=== PATIENT | male | born 1940 | race Caucasian/White ===

== ENCOUNTER 2018-08-23 15:52 | Emergency (ER) | payer MEDICARE, OTHER ==
[2018-08-23 16:16] VITALS: BP 140/68
--- NOTE | 2018-08-23 17:09 | EDM.PDOC ---
ED HPI GENERAL MEDICAL PROBLEM - General Chief Complaint: Genitourinary Problem Stated Complaint: infection Time Seen by Provider: 08/23/18 16:50 Source of Information: Reports: Patient, Family History Limitations: Reports: No Limitations - History of Present Illness INITIAL COMMENTS - FREE TEXT/NARRATIVE: 78-year-old male had a prostate biopsy 2 days ago, had one dose of Levaquin prior to the procedure. Apparently the procedure went well but last night he had chills and fever, and today doesn't feel well so he called the urologist and he told him to come into the emergency room to get antibiotics. Currently he is afebrile, feels better but still just kind of weak and mildly ill. No shortness of breath or cough, no dysuria. Denies back pain. Associated Symptoms: Reports: Fever/Chills, Malaise, Weakness. Denies: Chest Pain, Nausea/Vomiting, Shortness of Breath - Related Data Allergies Allergy/AdvReac Type Severity Reaction Status Date / Time sulfur dioxide Allergy Other Verified 08/23/18 16:10 tamsulosin HCl [From Flomax] Allergy Chills Verified 08/23/18 16:10 Home Meds: Home Meds Ascorbic Acid [Vitamin C] 1,000 mg PO DAILY 12/14/17 [History] Aspirin [Adult Low Dose Aspirin EC] 81 mg PO DAILY 12/14/17 [History] Cholecalciferol (Vitamin D3) [Vitamin D3] 1,000 units PO DAILY 12/14/17 [History ] Dabigatran [Pradaxa] 150 mg PO BID 12/14/17 [History] Diltiazem [Cardizem] 120 mg PO BID 12/14/17 [History] Fish Oil/[place]-3 Fatty Acids [Fish Oil 1,000 MG] 1,000 mg PO DAILY 12/14/17 [ History] Glucosamine HCl [Glucosamine] 1,500 mg PO DAILY 12/14/17 [History] Lisinopril [Zestril] 10 mg PO DAILY 12/14/17 [History] Multivitamin with Minerals [Multiple Vitamin] 1 tab PO DAILY 12/14/17 [History] Propafenone HCl [Rythmol Sr] 300 mg PO BID 12/14/17 [History] Terazosin [Hytrin] 10 mg PO BEDTIME 12/14/17 [History] Ubidecarenone [Coq-10] 100 mg PO DAILY 12/14/17 [History] Vitamin B Complex 1 each PO DAILY 12/14/17 [History] atorvaSTATin [Lipitor] 40 mg PO DAILY 12/14/17 [History] Past Medical History HEENT History: Reports: Hard of Hearing, Impaired Vision Cardiovascular History: Reports: Afib, High Cholesterol, Hypertension Genitourinary History: Reports: Pyelonephritis, Renal Calculus, UTI, Recurrent Musculoskeletal History: Reports: Back Pain, Chronic - Infectious Disease History Infectious Disease History: Reports: Chicken Pox, Measles - Past Surgical History HEENT Surgical History: Reports: None, Other (See Below) Other HEENT Surgeries/Procedures: EYE BROW LIFT Cardiovascular Surgical History: Reports: None GI Surgical History: Reports: Colonoscopy Male Surgical History: Reports: Prostate Biopsy, Other (See Below) Other Male Surgeries/Procedures: URERTER REATTACHMENT Musculoskeletal Surgical History: Reports: Other (See Below) Other Musculoskeletal Surgeries/Procedures:: EPIDERAL INJECTIONS Social & Family History - Family History Family Medical History: Noncontributory - Tobacco Use Smoking Status *Q: Never Smoker Second Hand Smoke Exposure: Yes - Caffeine Use Caffeine Use: Reports: Soda - Recreational Drug Use Recreational Drug Use: No ED ROS GENERAL - Review of Systems Review Of Systems: See Below Constitutional: Reports: Fever, Chills, Malaise HEENT: Reports: No Symptoms Respiratory: Denies: Shortness of Breath Cardiovascular: Denies: Chest Pain GI/Abdominal: Denies: Abdominal Pain, Vomiting : Denies: Dysuria, Flank Pain, Frequency Musculoskeletal: Reports: No Symptoms ED EXAM, RENAL/ - Physical Exam Exam: See Below Exam Limited By: No Limitations General Appearance: Alert, No Apparent Distress Head: Atraumatic Respiratory/Chest: No Respiratory Distress, Lungs Clear Cardiovascular: Regular Rate, Rhythm Back Exam: No: CVA Tenderness (R), CVA Tenderness (L) Neurological: Alert, Oriented Psychiatric: Normal Affect, Normal Mood Skin Exam: Warm, Dry Course - Vital Signs Last Recorded V/S: Last Vital Signs Temp 98.1 F 08/23/18 16:23 Pulse 70 08/23/18 16:23 Resp 16 08/23/18 16:23 BP 140/68 08/23/18 16:23 Pulse Ox 93 L 08/23/18 16:23 - Re-Assessments/Exams Free Text/Narrative Re-Assessment/Exam: 08/23/18 17:08 Patient currently has no fever, flank pain or significant symptoms and his vitals are normal. He'll be placed on Levaquin 500 mg once daily for 5 days, and can return anytime if worsening despite treatment. Departure - Departure Time of Disposition: 17:22 Disposition: Home, Self-Care 01 Condition: Good Clinical Impression: Fever chills - Discharge Information Instructions: Urinary Tract Infection, Adult, [id number] Referrals: PCP,None [Primary Care Provider] - Forms: ED Department Discharge Care Plan Goals: Take 500 mg or one dose of Levaquin daily for the next 5 days. Return anytime if worsening such as vomiting the medications, persistent fever or increased pain.
== END 2018-08-23 17:23 | disposition home or self-care (01) ==
LOC: JP.ED 15:52
DX: R50.9 Fever, unspecified (principal); I48.91 Unspecified atrial fibrillation; I10 Essential (primary) hypertension; E78.00 Pure hypercholesterolemia, unspecified; Z79.899 Other long term (current) drug therapy; Z77.22 Contact with and (suspected) exposure to environmental tobacco smoke (acute) (chronic); Z88.8 Allergy status to other drugs, medicaments and biological substances
CPT/HCPCS: 99283

== ENCOUNTER 2018-09-01 10:02 | Emergency (ER) | payer MEDICARE, OTHER ==
[2018-09-01 10:18] VITALS: BP 143/61; PULSE 74
[2018-09-01] MEDS ORDERED: Lidocaine 2% Jelly 10 ML Urojet MUCMEM ONE (10:44)
[2018-09-01] MEDS ORDERED: cefTRIAXone 1 GM in Sodium Chloride 0.9% 50 ML IV ONE (10:54)
--- NOTE | 2018-09-01 10:54 | EDM.PDOC ---
ED HPI GENERAL MEDICAL PROBLEM - General Chief Complaint: Genitourinary Problem Stated Complaint: URIN RETENTION Time Seen by Provider: 09/01/18 10:48 Source of Information: Reports: Patient History Limitations: Reports: No Limitations - History of Present Illness INITIAL COMMENTS - FREE TEXT/NARRATIVE: pt has just been passing drops of urine for the past 16 hours. Onset: Today Duration: Hour(s): Associated Symptoms: Reports: No Other Symptoms Bladder Pain Score (Numeric/FACES): 3 - Related Data Allergies Allergy/AdvReac Type Severity Reaction Status Date / Time sulfur dioxide Allergy Other Verified 09/01/18 10:23 tamsulosin HCl [From Flomax] Allergy Chills Verified 09/01/18 10:23 Home Meds: Home Meds Ascorbic Acid [Vitamin C] 1,000 mg PO DAILY 12/14/17 [History] Aspirin [Adult Low Dose Aspirin EC] 81 mg PO DAILY 12/14/17 [History] Cholecalciferol (Vitamin D3) [Vitamin D3] 1,000 units PO DAILY 12/14/17 [History ] Dabigatran [Pradaxa] 150 mg PO BID 12/14/17 [History] Diltiazem [Cardizem] 120 mg PO BID 12/14/17 [History] Fish Oil/[place]-3 Fatty Acids [Fish Oil 1,000 MG] 1,000 mg PO DAILY 12/14/17 [ History] Glucosamine HCl [Glucosamine] 1,500 mg PO DAILY 12/14/17 [History] Lisinopril [Zestril] 10 mg PO DAILY 12/14/17 [History] Multivitamin with Minerals [Multiple Vitamin] 1 tab PO DAILY 12/14/17 [History] Propafenone HCl [Rythmol Sr] 300 mg PO BID 12/14/17 [History] Terazosin [Hytrin] 10 mg PO BEDTIME 12/14/17 [History] Ubidecarenone [Coq-10] 100 mg PO DAILY 12/14/17 [History] Vitamin B Complex 1 each PO DAILY 12/14/17 [History] atorvaSTATin [Lipitor] 40 mg PO DAILY 12/14/17 [History] Sulfamethoxazole/Trimethoprim [Sulfamethoxazole-Tmp Ds Tablet] 1 each PO BID 08/15 [History] Past Medical History HEENT History: Reports: Hard of Hearing, Impaired Vision Cardiovascular History: Reports: Afib, High Cholesterol, Hypertension Genitourinary History: Reports: Pyelonephritis, Renal Calculus, UTI, Recurrent, Other (See Below) Other Genitourinary History: prostate biopsy August 21. Musculoskeletal History: Reports: Back Pain, Chronic - Infectious Disease History Infectious Disease History: Reports: Chicken Pox, Measles - Past Surgical History HEENT Surgical History: Reports: None, Other (See Below) Other HEENT Surgeries/Procedures: EYE BROW LIFT Cardiovascular Surgical History: Reports: None GI Surgical History: Reports: Colonoscopy Male Surgical History: Reports: Prostate Biopsy, Other (See Below) Other Male Surgeries/Procedures: URERTER REATTACHMENT Musculoskeletal Surgical History: Reports: Other (See Below) Other Musculoskeletal Surgeries/Procedures:: EPIDERAL INJECTIONS Social & Family History - Family History Family Medical History: Noncontributory - Tobacco Use Smoking Status *Q: Never Smoker Second Hand Smoke Exposure: No - Caffeine Use Caffeine Use: Reports: Soda - Recreational Drug Use Recreational Drug Use: No ED ROS GENERAL - Review of Systems Review Of Systems: See Below Constitutional: Reports: Chills HEENT: Reports: No Symptoms Respiratory: Reports: No Symptoms Cardiovascular: Reports: No Symptoms Endocrine: Reports: No Symptoms GI/Abdominal: Reports: Mucous in Stool : Reports: No Symptoms Musculoskeletal: Reports: No Symptoms Skin: Reports: No Symptoms ED EXAM, GI/ABD - Physical Exam Exam: See Below Text/Narrative:: pt arrived with ahistory of not being able to void for the past 16 hours. He has been uncomfortable . His bms have been a little irregular. He has not vomited. He was seen at the clinic yesterday and he was paced on bactrim for a possible UTI. His urine was cultured. Exam Limited By: No Limitations General Appearance: Alert, Anxious, Moderate Distress, Other (pt has greater than 999 in his bladder. ) Ears: Normal TMs Nose: Normal Inspection Throat/Mouth: Normal Inspection Head: Atraumatic Neck: Normal Inspection Respiratory/Chest: No Respiratory Distress Cardiovascular: Regular Rate, Rhythm GI/Abdominal Exam: Other ( tender over the distended bladder. ) (Male) Exam: Deferred Rectal (Males) Exam: Deferred Back Exam: Normal Inspection Extremities: Normal Inspection Neurological: Alert, Oriented, Normal Cognition Psychiatric: Normal Affect Course - Vital Signs Last Recorded V/S: Last Vital Signs Temp 36.2 C 09/01/18 10:28 Pulse 74 09/01/18 10:28 Resp 16 09/01/18 10:28 BP 143/61 H 09/01/18 10:28 Pulse Ox 94 L 09/01/18 10:28 - Orders/Labs/Meds Orders: Active Orders 24 hr Category Date Time Status Bladder Scan [RC] ASDIRECTED Care 09/01/18 10:14 Active Avery Catheter Insertion [Insert Urinary Catheter] [OM. Care 09/01/18 10:45 Ordered PC] Q24H Urinary Catheter Assessment [RC] ASDIRECTED Care 09/01/18 10:44 Active CULTURE URINE [RM] Stat Lab 09/01/18 11:32 Received Sodium Chloride 0.9% [Normal Saline] 1,000 ml Med 09/01/18 11:00 Active IV ASDIRECTED Medication Orders Sodium Chloride (Normal Saline) 1,000 mls @ 999 mls/hr IV ASDIRECTED JUDITH Last Admin: 09/01/18 11:28 Dose: 999 mls/hr Labs: Laboratory Tests 09/01/18 Range/Units 10:41 Lactic Acid 2.5 H (0.4-2.0) mmol/L Meds: Medications Generic Name Dose Route Start Last Admin Trade Name Freq PRN Reason Stop Dose Admin Sodium Chloride 1,000 mls @ 999 mls/hr 09/01/18 11:00 09/01/18 11:28 Normal Saline IV 999 mls/hr ASDIRECTED JUDITH Administration Discontinued Medications Generic Name Dose Route Start Last Admin Trade Name Freq PRN Reason Stop Dose Admin Ceftriaxone Sodium 1 gm/ 50 mls @ 100 mls/hr 09/01/18 10:54 09/01/18 11:32 Sodium Chloride IV 09/01/18 11:23 100 mls/hr ONETIME ONE Administration Lidocaine HCl 10 ml 09/01/18 10:44 09/01/18 10:50 Xylocaine 2% Jelly MUCMEM 09/01/18 10:45 10 ml ONETIME ONE Administration - Re-Assessments/Exams Free Text/Narrative Re-Assessment/Exam: 09/01/18 12:12 pt had a 21,000 wbc. He is not running a fever. He is holding fluids down today. He has a lactic acid which is borderline. He has a urine culture that is pending. He had a cat scan of the abdoman which did not show any abcess formation of fluid collection around the prostate, slight swelling was present. The cat scan was otherwise neg. Departure - Departure Time of Disposition: 13:02 Disposition: Home, Self-Care 01 Condition: Fair Clinical Impression: UTI (urinary tract infection), H/O prostate biopsy - Discharge Information Referrals: Elijah Fisher, HOSPICE TEAM [employer]AD [Primary Care Provider] - Forms: ED Department Discharge Care Plan Goals: push fluids, rtc tomorrow for another gm of rocephen. , continue bactrim, rtc if any high temp spikes. avery cath should stay in until monday am, send a leg bag with the pt. - My Orders Last 24 Hours: My Active Orders 09/01/18 10:14 Bladder Scan [RC] ASDIRECTED 09/01/18 10:44 Urinary Catheter Assessment [RC] ASDIRECTED 09/01/18 10:45 Avery Catheter Insertion [Insert Urinary Catheter] [OM.PC] Q24H 09/01/18 11:00 Sodium Chloride 0.9% [Normal Saline] 1,000 ml IV ASDIRECTED 09/01/18 11:32 CULTURE URINE [RM] Stat - Assessment/Plan Last 24 Hours: My Active Orders 09/01/18 10:14 Bladder Scan [RC] ASDIRECTED 09/01/18 10:44 Urinary Catheter Assessment [RC] ASDIRECTED 09/01/18 10:45 Avery Catheter Insertion [Insert Urinary Catheter] [OM.PC] Q24H 09/01/18 11:00 Sodium Chloride 0.9% [Normal Saline] 1,000 ml IV ASDIRECTED 09/01/18 11:32 CULTURE URINE [RM] Stat
[2018-09-01] MEDS ORDERED: Sodium Chloride 0.9% 1,000 ML IV SCH (11:00)
--- NOTE | 2018-09-01 12:03 | CRLCT ---
Indication: Recent prostate biopsy white blood count up Technique: Contrast-enhanced CT abdomen and pelvis. Coronal and sagittal reformatted images obtained. Comparison: CT abdomen pelvis 08/15/2015 Findings: Heart size is normal. No pericardial or pleural effusion. Minimal basilar atelectasis. Small hiatal hernia. Unenhanced liver gallbladder, pancreas, adrenal glands, appears unremarkable. Small low-density lesion in the spleen nonspecific likely benign. No renal calculi visualized. Left kidney is unremarkable. No hydronephrosis. There is right hydronephrosis and mild dilatation of the right ureter which is overall unchanged from the prior study. There are no obstructing stones. Insertion of the right ureter is within the right superior bladder. Appearance is unchanged from 2016. Diverticulosis. Normal appendix. No obstruction. No adenopathy. Enlarged prostate gland. Ann catheter in urinary bladder. Some minimal presacral fat stranding probably related to recent biopsy. No abscess. No free fluid. No bowel wall thickening. No suspicious bony lesions are seen. Impression: 1. Mild presacral fat stranding probably related to recent biopsy. There is otherwise no acute findings in the abdomen or pelvis. 2. 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 The findings are stable from 2016. No obstructing stones. 3. Enlarged prostate gland. 4. Diverticulosis. Please note that all CT scans at this facility use dose modulation, iterative reconstruction, and/or weight-based dosing when appropriate to reduce radiation dose to as low as reasonably achievable. Dictated by Lacy Correa MD @ Sep 01 2018 11:50AM Signed by Dr. Lacy Correa @ Sep 01 2018 12:01PM
== END 2018-09-01 13:21 | disposition home or self-care (01) ==
LOC: JP.ED 10:02
DX: N39.0 Urinary tract infection, site not specified (principal); I48.91 Unspecified atrial fibrillation; E78.00 Pure hypercholesterolemia, unspecified; I10 Essential (primary) hypertension; Z88.8 Allergy status to other drugs, medicaments and biological substances; Z79.899 Other long term (current) drug therapy; Z79.82 Long term (current) use of aspirin
CPT/HCPCS: 36415; 51702; 51798; 74176; 83605; 87086; 96365; 99284; J0696; J7030; J7050

== ENCOUNTER 2018-09-04 13:17 | Emergency (ER) | payer MEDICARE, OTHER ==
[2018-09-04 13:32] VITALS: BP 138/75; PULSE 75
[2018-09-04] MEDS ORDERED: Lidocaine 2% Jelly 10 ML Urojet MUCMEM ONE (13:38)
--- NOTE | 2018-09-04 14:24 | EDM.PDOC ---
ED HPI GENERAL MEDICAL PROBLEM - General Chief Complaint: Genitourinary Problem Stated Complaint: URINE INTENTION Time Seen by Provider: 09/04/18 13:34 Source of Information: Reports: Patient, Family, Old Records, RN Notes Reviewed History Limitations: Reports: No Limitations - History of Present Illness INITIAL COMMENTS - FREE TEXT/NARRATIVE: 78-year-old gentleman presents to the emergency department today with complaint of urinary retention, he was just evaluated in the emergency department on September 01 found to have urinary tract infection started on antibiotics urinary catheter was placed unfortunately was removed in the clinic yesterday he is had difficulty with urinating ever since.. Bladder scan was performed upon arrival values greater than 999 mL Bladder Pain Score (Numeric/FACES): 8 - Related Data Allergies Allergy/AdvReac Type Severity Reaction Status Date / Time sulfur dioxide Allergy Other Verified 09/04/18 13:28 tamsulosin HCl [From Flomax] Allergy Chills Verified 09/04/18 13:28 Home Meds: Home Meds Ascorbic Acid [Vitamin C] 1,000 mg PO DAILY 12/14/17 [History] Aspirin [Adult Low Dose Aspirin EC] 81 mg PO DAILY 12/14/17 [History] Cholecalciferol (Vitamin D3) [Vitamin D3] 1,000 units PO DAILY 12/14/17 [History ] Dabigatran [Pradaxa] 150 mg PO BID 12/14/17 [History] Diltiazem [Cardizem] 120 mg PO BID 12/14/17 [History] Fish Oil/[place]-3 Fatty Acids [Fish Oil 1,000 MG] 1,000 mg PO DAILY 12/14/17 [ History] Glucosamine HCl [Glucosamine] 1,500 mg PO DAILY 12/14/17 [History] Lisinopril [Zestril] 10 mg PO DAILY 12/14/17 [History] Multivitamin with Minerals [Multiple Vitamin] 1 tab PO DAILY 12/14/17 [History] Propafenone HCl [Rythmol Sr] 300 mg PO BID 12/14/17 [History] Terazosin [Hytrin] 10 mg PO BEDTIME 12/14/17 [History] Ubidecarenone [Coq-10] 100 mg PO DAILY 12/14/17 [History] Vitamin B Complex 1 each PO DAILY 12/14/17 [History] atorvaSTATin [Lipitor] 40 mg PO DAILY 12/14/17 [History] Sulfamethoxazole/Trimethoprim [Sulfamethoxazole-Tmp Ds Tablet] 1 each PO BID 08/15 [History] Past Medical History HEENT History: Reports: Hard of Hearing, Impaired Vision Cardiovascular History: Reports: Afib, High Cholesterol, Hypertension Genitourinary History: Reports: Pyelonephritis, Renal Calculus, UTI, Recurrent, Other (See Below) Other Genitourinary History: prostate biopsy August 21. Musculoskeletal History: Reports: Back Pain, Chronic - Infectious Disease History Infectious Disease History: Reports: Chicken Pox - Past Surgical History HEENT Surgical History: Reports: None, Other (See Below) Other HEENT Surgeries/Procedures: EYE BROW LIFT Cardiovascular Surgical History: Reports: None GI Surgical History: Reports: Colonoscopy Male Surgical History: Reports: Prostate Biopsy, Other (See Below) Other Male Surgeries/Procedures: URERTER REATTACHMENT Musculoskeletal Surgical History: Reports: Other (See Below) Other Musculoskeletal Surgeries/Procedures:: EPIDERAL INJECTIONS Social & Family History - Family History Family Medical History: Noncontributory - Tobacco Use Smoking Status *Q: Never Smoker Second Hand Smoke Exposure: No - Caffeine Use Caffeine Use: Reports: Soda - Recreational Drug Use Recreational Drug Use: No ED ROS GENERAL - Review of Systems Review Of Systems: See Below : Reports: Urinary Retention ED EXAM, RENAL/ - Physical Exam Exam: See Below Exam Limited By: No Limitations General Appearance: Alert, WD/WN, No Apparent Distress Respiratory/Chest: No Respiratory Distress Course - Vital Signs Last Recorded V/S: Last Vital Signs Temp 96.5 F 09/04/18 13:30 Pulse 75 09/04/18 13:30 Resp 20 09/04/18 13:30 BP 138/75 09/04/18 13:30 Pulse Ox 96 09/04/18 13:30 - Orders/Labs/Meds Orders: Active Orders 24 hr Category Date Time Status Bladder Scan [RC] ASDIRECTED Care 09/04/18 13:35 Active Insert Urinary Catheter [OM.PC] Q24H Care 09/04/18 13:45 Ordered Urinary Catheter Assessment [RC] ASDIRECTED Care 09/04/18 13:34 Active Meds: Medications Discontinued Medications Generic Name Dose Route Start Last Admin Trade Name Freq PRN Reason Stop Dose Admin Lidocaine HCl 10 ml 09/04/18 13:38 09/04/18 13:58 Xylocaine 2% Jelly MUCMEM 09/04/18 13:39 10 ml ONETIME ONE Administration Departure - Departure Time of Disposition: 14:23 Disposition: Home, Self-Care 01 Condition: Fair Clinical Impression: Retention of urine - Discharge Information Referrals: Elijah Fisher, [employer]LY[employer] [Primary Care Provider] - Additional Instructions: Continue using her catheter until reevaluated by urology, continue full course of antibiotics orally provided, keep your follow-up appointment with urology next week, call return to the emergency department worsening of symptoms - My Orders Last 24 Hours: My Active Orders 09/04/18 13:34 Urinary Catheter Assessment [RC] ASDIRECTED 09/04/18 13:35 Bladder Scan [RC] ASDIRECTED 09/04/18 13:45 Insert Urinary Catheter [OM.PC] Q24H - Assessment/Plan Last 24 Hours: My Active Orders 09/04/18 13:34 Urinary Catheter Assessment [RC] ASDIRECTED 09/04/18 13:35 Bladder Scan [RC] ASDIRECTED 09/04/18 13:45 Insert Urinary Catheter [OM.PC] Q24H Plan: Assessment Acuity = acute Site and laterality = urinary tract infection with urinary retention and history of recent prostate biopsy Etiology = unclear etiology Manifestations = none Location of injury = Home Lab values = none Plan catheter was placed he had good improvement good urine output he is going to follow up with urology next week continue with antibiotics This note was dictated using [employer] voice recognition software please call with any questions on syntax or grammar.
== END 2018-09-04 14:38 | disposition home or self-care (01) ==
LOC: JP.ED 13:17
DX: N39.0 Urinary tract infection, site not specified (principal); R33.9 Retention of urine, unspecified; I10 Essential (primary) hypertension; I48.91 Unspecified atrial fibrillation; Z79.899 Other long term (current) drug therapy; Z88.2 Allergy status to sulfonamides; Z79.82 Long term (current) use of aspirin
CPT/HCPCS: 51702; 51798; 99283